=== PATIENT | male | born 1980 | race African-American/Black ===

== ENCOUNTER 2018-04-16 00:32 | Inpatient (IN) | payer OTHER ==
[2018-04-16] MEDS ORDERED: Sodium Chloride 0.9% 1,000 ML IV ONE ×2 (00:40→01:39)
--- NOTE | 2018-04-16 00:42 | EDM.PDOC ---
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, he has a known history of seizure disorder he was found unresponsive by his employees in a work locker room he is known to be noncompliant with his seizure medication was presumed that he had had a seizure however EMS was called as he had some confusion consistent with a postictal state However on arrival to the ER he was found to be hypoxic 82% on room air as well as hypotensive 80s over 40s, chest x-ray reveals a significant pneumonia and sepsis is likely Patient does not subjectively feel as if he has had fever or nausea although he did vomit once here in the emergency room no chest pain shortness of breath headache dizziness or palpitation no bowel or urine symptoms Patient initially wanted to leave AGAINST MEDICAL ADVICE however I did discuss with him the risks and benefits and he agrees to stay complete workup ] Review of systems: As per history of present illness and below otherwise all systems reviewed and negative. Past medical history: As per history of present illness and as reviewed below otherwise noncontributory. Surgical history: As per history of present illness and as reviewed below otherwise noncontributory. Social history: No reported history of drug or alcohol abuse. Family history: As per history of present illness and as reviewed below otherwise noncontributory. Physical exam: HEENT: Atraumatic, normocephalic, pupils reactive, negative for conjunctival pallor or scleral icterus, mucous membranes moist, throat clear, neck supple, nontender, trachea midline. Lungs: Clear to auscultation, breath sounds equal bilaterally, chest nontender. Heart: S1S2, regular, negative for clicks, rubs, or JVD. Abdomen: Soft, nondistended, nontender. Negative for masses or hepatosplenomegaly. Negative for costovertebral tenderness. Pelvis: Stable nontender. Genitourinary: Deferred. Rectal: Deferred. Extremities: Atraumatic, negative for cords or calf pain. Neurovascular unremarkable. Neuro: Awake, alert, oriented. Cranial nerves II through XII unremarkable. Cerebellum unremarkable. Motor and sensory unremarkable throughout. Exam nonfocal. Diagnostics: CBC CMP UA troponin blood culture urine culture EKG Chest [address] Keppra level [] Therapeutics: [ 2 L normal saline bolus Zosyn 3.375 g IV Vancomycin 1 g IV DuoNeb Solu-Medrol 125 mg IV ] Impression: [ hypoxia Hypotension Pneumonia Rule out sepsis ] Definitive disposition and diagnosis as appropriate pending reevaluation and review of above. - Related Data Allergies Allergy/AdvReac Type Severity Reaction Status Date / Time No Known Allergies Allergy Verified 04/16/18 00:40 Home Meds: Home Meds . [No Known Home Meds] 04/16/18 [History] Past Medical History Neurological History: Reports: Seizure Social & Family History - Tobacco Use Smoking Status *Q: Never Smoker ED ROS GENERAL - Review of Systems Review Of Systems: See Below ED EXAM, GENERAL - Physical Exam Exam: See Below Course - Vital Signs Last Recorded V/S: Last Vital Signs Temp 97 F 04/16/18 01:36 Pulse 98 04/16/18 01:29 Resp 18 04/16/18 01:36 BP 135/82 04/16/18 01:36 Pulse Ox 99 04/16/18 01:36 - Orders/Labs/Meds Orders: Active Orders 24 hr Category Date Time Status EKG Documentation Completion [RC] STAT Care 04/16/18 00:40 Active Chest 1V Frontal [CR] Stat Exams 04/16/18 00:40 Taken Head wo Cont [CT] Stat Exams 04/16/18 01:55 Ordered CULTURE BLOOD [BC] Stat Lab 04/16/18 00:45 Received CULTURE BLOOD [BC] Stat Lab 04/16/18 00:45 Results DRUG SCREEN, URINE [URCHEM] Stat Lab 04/16/18 00:40 Ordered LEVETIRACETAM, S [REF] Stat Lab 04/16/18 00:44 Ordered UA W/MICROSCOPIC [URIN] Stat Lab 04/16/18 00:40 Ordered Piperacillin/Tazobactam [Piperacil-Tazobact] 3.375 gm Med 04/16/18 01:43 Active Sodium Chloride 0.9% [Normal Saline] 50 ml IV ONETIME Sodium Chloride 0.9% [Normal Saline] 1,000 ml Med 04/16/18 01:39 Active IV .Bolus Vancomycin [Vancocin] 1 gm Med 04/16/18 01:44 Active Sodium Chloride 0.9% [Normal Saline] 250 ml IV ONETIME Blood Culture x2 Reflex Set [OM.PC] Stat Oth 04/16/18 00:41 Ordered Medication Orders Sodium Chloride (Normal Saline) 1,000 mls @ 999 mls/hr IV .Bolus ONE Stop: 04/16/18 02:39 Last Admin: 04/16/18 01:40 Dose: 999 mls/hr Piperacillin Sod/Tazobactam (Sod 3.375 gm/ Sodium Chloride) 50 mls @ 100 mls/ hr IV ONETIME ONE Stop: 04/16/18 02:12 Last Admin: 04/16/18 01:48 Dose: 100 mls/hr Vancomycin HCl 1 gm/ Sodium (Chloride) 250 mls @ 250 mls/hr IV ONETIME ONE Stop: 04/16/18 02:43 Labs: Laboratory Tests 04/16/18 04/16/18 04/16/18 Range/Units 00:45 00:45 00:45 WBC 8.33 (4.0-11.0) K/uL RBC 4.68 (4.50-5.90) M/uL Hgb 13.6 (13.0-17.0) g/dL Hct 40.0 (38.0-50.0) % MCV 85.5 (80.0-98.0) fL MCH 29.1 (27.0-32.0) pg MCHC 34.0 (31.0-37.0) g/dL RDW Std Deviation 40.5 (28.0-62.0) fl RDW Coeff of Arnaldo 13 (11.0-15.0) % Plt Count 151 (150-400) K/uL MPV 12.60 H (7.40-12.00) fL Neut % (Auto) 61.9 (48.0-80.0) % Lymph % (Auto) 25.0 (16.0-40.0) % Wallace % (Auto) 6.2 (0.0-15.0) % Eos % (Auto) 6.4 (0.0-7.0) % Baso % (Auto) 0.5 (0.0-1.5) % Neut # (Auto) 5.2 (1.4-5.7) K/uL Lymph # (Auto) 2.1 (0.6-2.4) K/uL Wallace # (Auto) 0.5 (0.0-0.8) K/uL Eos # (Auto) 0.5 (0.0-0.7) K/uL Baso # (Auto) 0.0 (0.0-0.1) K/uL Lactate 5.8 H (0.20-2.00) mmol/L Sodium 140 (136-148) mmol/L Potassium 4.0 (3.5-5.1) mmol/L Chloride 105 (98-107) mmol/L Carbon Dioxide 23.3 (21.0-32.0) mmol/L BUN 16 (7.0-18.0) mg/dL Creatinine 1.6 H (0.8-1.3) mg/dL Est Cr Clr Drug Dosing 72.07 mL/min Estimated GFR (MDRD) 48.4 ml/min Glucose 132 H (74-106) mg/dL Calcium 8.7 (8.5-10.1) mg/dL Total Bilirubin 0.4 (0.2-1.0) mg/dL AST 15 (15-37) IU/L ALT 38 (14-63) IU/L Alkaline Phosphatase 64 (46-116) U/L Creatine Kinase (26-308) U/L Troponin I < 0.050 (0.000-0.056) ng/mL Total Protein 6.5 (6.4-8.2) g/dL Albumin 3.4 (3.4-5.0) g/dL Globulin 3.1 (2.0-3.5) g/dL Albumin/Globulin Ratio 1.1 L (1.3-2.8) TSH 3rd Generation 1.09 (0.36-3.74) uIU/mL Ethyl Alcohol <3 mg/dL 04/16/18 Range/Units 00:53 WBC (4.0-11.0) K/uL RBC (4.50-5.90) M/uL Hgb (13.0-17.0) g/dL Hct (38.0-50.0) % MCV (80.0-98.0) fL MCH (27.0-32.0) pg MCHC (31.0-37.0) g/dL RDW Std Deviation (28.0-62.0) fl RDW Coeff of Arnaldo (11.0-15.0) % Plt Count (150-400) K/uL MPV (7.40-12.00) fL Neut % (Auto) (48.0-80.0) % Lymph % (Auto) (16.0-40.0) % Wallace % (Auto) (0.0-15.0) % Eos % (Auto) (0.0-7.0) % Baso % (Auto) (0.0-1.5) % Neut # (Auto) (1.4-5.7) K/uL Lymph # (Auto) (0.6-2.4) K/uL Wallace # (Auto) (0.0-0.8) K/uL Eos # (Auto) (0.0-0.7) K/uL Baso # (Auto) (0.0-0.1) K/uL Lactate (0.20-2.00) mmol/L Sodium (136-148) mmol/L Potassium (3.5-5.1) mmol/L Chloride (98-107) mmol/L Carbon Dioxide (21.0-32.0) mmol/L BUN (7.0-18.0) mg/dL Creatinine (0.8-1.3) mg/dL Est Cr Clr Drug Dosing mL/min Estimated GFR (MDRD) ml/min Glucose (74-106) mg/dL Calcium (8.5-10.1) mg/dL Total Bilirubin (0.2-1.0) mg/dL AST (15-37) IU/L ALT (14-63) IU/L Alkaline Phosphatase (46-116) U/L Creatine Kinase 175 (26-308) U/L Troponin I (0.000-0.056) ng/mL Total Protein (6.4-8.2) g/dL Albumin (3.4-5.0) g/dL Globulin (2.0-3.5) g/dL Albumin/Globulin Ratio (1.3-2.8) TSH 3rd Generation (0.36-3.74) uIU/mL Ethyl Alcohol mg/dL Meds: Medications Generic Name Dose Route Start Last Admin Trade Name Freq PRN Reason Stop Dose Admin Sodium Chloride 1,000 mls @ 999 mls/hr 04/16/18 01:39 04/16/18 01:40 Normal Saline IV 04/16/18 02:39 999 mls/hr .Bolus ONE Administration Piperacillin Sod/Tazobactam 50 mls @ 100 mls/hr 04/16/18 01:43 04/16/18 01:48 Sod 3.375 gm/ Sodium Chloride IV 04/16/18 02:12 100 mls/hr ONETIME ONE Administration Vancomycin HCl 1 gm/ Sodium 250 mls @ 250 mls/hr 04/16/18 01:44 Chloride IV 04/16/18 02:43 ONETIME ONE Discontinued Medications Generic Name Dose Route Start Last Admin Trade Name Freq PRN Reason Stop Dose Admin Sodium Chloride 1,000 mls @ 999 mls/hr 04/16/18 00:40 04/16/18 00:45 Normal Saline IV 04/16/18 01:40 999 mls/hr STAT ONE Administration Methylprednisolone Sodium Succinate 125 mg 04/16/18 01:30 04/16/18 01:29 Solu-Medrol IVPUSH 04/16/18 01:31 125 mg ONETIME ONE Administration Methylprednisolone Sodium Succinate Confirm 04/16/18 01:25 04/16/18 01:41 Solu-Medrol Administered 04/16/18 01:26 Not Given Dose 125 mg .ROUTE .STK-MED ONE Ondansetron HCl 8 mg 04/16/18 01:32 04/16/18 01:36 Zofran IVPUSH 04/16/18 01:33 8 mg ONETIME ONE Administration Ondansetron HCl Confirm 04/16/18 01:34 04/16/18 01:41 Zofran Administered 04/16/18 01:35 Not Given Dose 8 mg .ROUTE .STK-MED ONE Departure - Departure Time of Disposition: 02:00 Disposition: Admitted As Inpatient 64 Condition: Poor Clinical Impression: Pneumonia, Hypoxia, Hypotension - Discharge Information Forms: ED Department Discharge - My Orders Last 24 Hours: My Active Orders 04/16/18 00:40 EKG Documentation Completion [RC] STAT Chest 1V Frontal [CR] Stat DRUG SCREEN, URINE [URCHEM] Stat UA W/MICROSCOPIC [URIN] Stat 04/16/18 00:41 Blood Culture x2 Reflex Set [OM.PC] Stat 04/16/18 00:44 LEVETIRACETAM, S [REF] Stat 04/16/18 00:45 CULTURE BLOOD [BC] Stat CULTURE BLOOD [BC] Stat 04/16/18 01:39 Sodium Chloride 0.9% [Normal Saline] 1,000 ml IV .Bolus 04/16/18 01:43 Piperacillin/Tazobactam [Piperacil-Tazobact] 3.375 gm Sodium Chloride 0.9% [ Normal Saline] 50 ml IV ONETIME 04/16/18 01:44 Vancomycin [Vancocin] 1 gm Sodium Chloride 0.9% [Normal Saline] 250 ml IV ONETIME 04/16/18 01:55 Head wo Cont [CT] Stat - Assessment/Plan Last 24 Hours: My Active Orders 04/16/18 00:40 EKG Documentation Completion [RC] STAT Chest 1V Frontal [CR] Stat DRUG SCREEN, URINE [URCHEM] Stat UA W/MICROSCOPIC [URIN] Stat 04/16/18 00:41 Blood Culture x2 Reflex Set [OM.PC] Stat 04/16/18 00:44 LEVETIRACETAM, S [REF] Stat 04/16/18 00:45 CULTURE BLOOD [BC] Stat CULTURE BLOOD [BC] Stat 04/16/18 01:39 Sodium Chloride 0.9% [Normal Saline] 1,000 ml IV .Bolus 04/16/18 01:43 Piperacillin/Tazobactam [Piperacil-Tazobact] 3.375 gm Sodium Chloride 0.9% [ Normal Saline] 50 ml IV ONETIME 04/16/18 01:44 Vancomycin [Vancocin] 1 gm Sodium Chloride 0.9% [Normal Saline] 250 ml IV ONETIME 04/16/18 01:55 Head wo Cont [CT] Stat
[2018-04-16] MEDS ORDERED: methylPREDNISolone Sodium Succinate 125 MG/2 ML SDV ONE (01:25)
[2018-04-16] MEDS ORDERED: methylPREDNISolone Sodium Succinate 125 MG/2 ML SDV IVPUSH ONE (01:30)
[2018-04-16] MEDS ORDERED: Ondansetron 4 MG/2 ML SDV IVPUSH ONE (01:32)
[2018-04-16] MEDS ORDERED: Ondansetron 4 MG/2 ML SDV ONE (01:34)
[2018-04-16] MEDS ORDERED: Piperacillin/Tazobactam 3.375 GM in Sodium Chloride 0.9% 50 ML IV ONE (01:43)
[2018-04-16 01:47] LABS: CHLORIDE,CL 105 mmol/L (98-107); SODIUM,NA 140 mmol/L (136-148)
[2018-04-16] MEDS: Sodium Chloride 0.45% 1,000 ML IV SCH ×2 (06:16→16:01)
[2018-04-16 07:37] LABS: CHLORIDE,CL 106 mmol/L (98-107); SODIUM,NA 139 mmol/L (136-148)
[2018-04-16] MEDS: Levofloxacin/Dextrose 5%-Water 750 MG in Premix Bag 1 BAG IV SCH (08:09)
[2018-04-16] MEDS: Piperacillin/Tazobactam 4.5 GM in Sodium Chloride 0.9% 100 ML IV SCH ×3 (10:01→22:00)
--- NOTE | 2018-04-16 10:12 | CR ---
EXAM DATE: 04/16/18 PATIENT'S AGE: 37 Patient: DINO WANG Facility: [place], [place] Site . Site : 1980 Study: XRay Chest [id number]/16/2018 1:34:25 AM Ordering Physician: Doctor Mary Final Report: INDICATION: Patient came in by ambulance. Patient was found unconscious TECHNIQUE: Chest radiograph 1 view COMPARISON: None FINDINGS: Moderate degradation of image quality noted due to body habitus. Mediastinum: The mediastinum is normal in appearance. The heart silhouette is normal in size and morphology. Lung: Mild airspace infiltrates are present in the right perihilar region and left lung base. No sign of pleural effusion seen. No pneumothorax is identified. Musculoskeletal: Unremarkable for age. IMPRESSION: 1. Mild airspace infiltrates are present in the right perihilar region and left lung base. Findings may be due to asymmetric edema, aspiration, or pneumonia. Dictated by Viraj Haas MD @ 04/16/2018 1:37:42 AM Dictated by: Viraj Haas MD @ 04/16/2018 01:37:47 (Electronic Signature) Report Signed by Proxy. [facility]PITALFacundo
--- NOTE | 2018-04-16 10:13 | CT ---
EXAM DATE: 04/16/18 PATIENT'S AGE: 37 Patient: DINO WANG Facility: [place], [place] Site . Site : 1980 Study: CT Head [id number]/16/2018 2:19:00 AM Ordering Physician: Zoë Bonner Final Report: INDICATION: Found unconscious TECHNIQUE: CT head without contrast. COMPARISON: None available FINDINGS: The ventricles and sulci are within normal limits for the patient`s age. There is no mass effect or midline shift. There is no loss of henderson-white differentiation. There is no evidence of an acute intracranial hemorrhage. No acute calvarial fracture is seen. There is mild scalp swelling at the vertex. Paranasal sinus mucosal thickening is noted. The mastoid air cells are clear. The visualized orbits are within normal limits. IMPRESSION: No evidence of an acute intracranial hemorrhage, mass effect or loss of henderson- white differentiation. Scalp swelling at the vertex. Paranasal sinus disease. Dictated by Ernie Hansen MD @ 04/16/2018 2:41:45 AM Please note that all CT scans at this facility use dose modulation, iterative reconstruction, and/or weight-based dosing when appropriate to reduce radiation dose to as low as reasonably achievable. Dictated by: Ernie Hansen MD @ 04/16/2018 02:41:49 (Electronic Signature) Report Signed by Proxy. [facility]
--- NOTE | 2018-04-16 17:55 | PCM.HP ---
H&P History of Present Illness - General Date of Service: 04/16/18 Admit Problem/Dx: Admission Diagnosis/Problem Admission Diagnosis/Problem Pneumonia Patient who came here for work the day before , traveling all day from [place], presented to Er because he was found unresponsive by his coworkers and they called the EMS. Patient has history of [place] Seizure , but did not have seizures for the past 4 y and he stopped his medications by himself 4 y ago He was also found to have O2 sat 81 % on room air and HR 133 , Bp:80/40 Patient states that during the day he traveled he was feeling lightheaded on and off and had some dry cough , no fever. Denies CP , sob Source of Information: Patient History Limitations: Reports: No Limitations - History of Present Illness Duration of Symptoms: Reports: Minutes: Location: Reports: Head - Related Data Allergies/Adverse Reactions: Allergies Allergy/AdvReac Type Severity Reaction Status Date / Time No Known Allergies Allergy Verified 04/16/18 00:40 Home Medications: Home Meds Multivitamin [Multivitamins] 1 each PO DAILY 04/16/18 [History] Past Medical History HEENT History: Reports: Impaired Vision Musculoskeletal History: Reports: Fracture Neurological History: Reports: Migraines, Seizure - Past Surgical History GI Surgical History: Reports: Appendectomy Neurological Surgical History: Reports: None Musculoskeletal Surgical History: Reports: Other (See Below) Other Musculoskeletal Surgeries/Procedures:: left shoulder fracture and surgery Social & Family History - Family History Family Medical History: Noncontributory - Tobacco Use Smoking Status *Q: Never Smoker - Caffeine Use Caffeine Use: Reports: Soda - Recreational Drug Use Recreational Drug Use: No H&P Review of Systems - Review of Systems: Review Of Systems: See Below General: Reports: No Symptoms HEENT: Reports: No Symptoms Pulmonary: Reports: Cough. Denies: Sputum Cardiovascular: Reports: Lightheadedness Gastrointestinal: Reports: No Symptoms Musculoskeletal: Reports: No Symptoms Skin: Reports: No Symptoms Psychiatric: Reports: No Symptoms Neurological: Reports: Other (hx of seizure) Hematologic/Lymphatic: Reports: No Symptoms Immunologic: Reports: No Symptoms Exam - Exam Exam: See Below - Vital Signs Vital Signs: Last Vital Signs Temp 98.2 F 04/16/18 17:07 Pulse 94 04/16/18 17:07 Resp 18 04/16/18 17:07 BP 150/74 H 04/16/18 17:07 Pulse Ox 94 L 04/16/18 17:07 Weight: 295 lb 4.8 oz - Exam General: Alert, Oriented HEENT: Conjunctiva Clear, EOMI Neck: Supple, Trachea Midline Lungs: Decreased Breath Sounds, Crackles. No: Wheezing Cardiovascular: Regular Rate, Regular Rhythm, Normal S1, Normal S2 GI/Abdominal Exam: Normal Bowel Sounds, Soft, Non-Tender, No Organomegaly, No Distention Back Exam: Normal Inspection, Full Range of Motion Extremities: Normal Inspection, Normal Range of Motion Skin: Warm, Dry, Intact Neurological: Cranial Nerves Intact Neuro Extensive - Mental Status: Alert, Oriented x3, Normal Mood/Affect, Normal Cognition Psychiatric: Alert, Normal Affect, Normal Mood - Patient Data Lab Results Last 24 hrs: Laboratory Results - last 24 hr 04/16/18 04/16/18 04/16/18 Range/Units 00:45 00:45 00:45 WBC 8.33 (4.0-11.0) K/uL RBC 4.68 (4.50-5.90) M/uL Hgb 13.6 (13.0-17.0) g/dL Hct 40.0 (38.0-50.0) % MCV 85.5 (80.0-98.0) fL MCH 29.1 (27.0-32.0) pg MCHC 34.0 (31.0-37.0) g/dL RDW Std Deviation 40.5 (28.0-62.0) fl RDW Coeff of Arnaldo 13 (11.0-15.0) % Plt Count 151 (150-400) K/uL MPV 12.60 H (7.40-12.00) fL Neut % (Auto) 61.9 (48.0-80.0) % Lymph % (Auto) 25.0 (16.0-40.0) % [place] % (Auto) 6.2 (0.0-15.0) % Eos % (Auto) 6.4 (0.0-7.0) % Baso % (Auto) 0.5 (0.0-1.5) % Neut # (Auto) 5.2 (1.4-5.7) K/uL Lymph # (Auto) 2.1 (0.6-2.4) K/uL [place] # (Auto) 0.5 (0.0-0.8) K/uL Eos # (Auto) 0.5 (0.0-0.7) K/uL Baso # (Auto) 0.0 (0.0-0.1) K/uL Nucleated RBC % /100WBC Nucleated RBCs # K/uL Lactate 5.8 H (0.20-2.00) mmol/L Sodium 140 (136-148) mmol/L Potassium 4.0 (3.5-5.1) mmol/L Chloride 105 (98-107) mmol/L Carbon Dioxide 23.3 (21.0-32.0) mmol/L BUN 16 (7.0-18.0) mg/dL Creatinine 1.6 H (0.8-1.3) mg/dL Est Cr Clr Drug Dosing 72.07 mL/min Estimated GFR (MDRD) 48.4 ml/min Glucose 132 H (74-106) mg/dL Calcium 8.7 (8.5-10.1) mg/dL Total Bilirubin 0.4 (0.2-1.0) mg/dL AST 15 (15-37) IU/L ALT 38 (14-63) IU/L Alkaline Phosphatase 64 (46-116) U/L Creatine Kinase (26-308) U/L Troponin I < 0.050 (0.000-0.056) ng/mL Total Protein 6.5 (6.4-8.2) g/dL Albumin 3.4 (3.4-5.0) g/dL Globulin 3.1 (2.0-3.5) g/dL Albumin/Globulin Ratio 1.1 L (1.3-2.8) TSH 3rd Generation 1.09 (0.36-3.74) uIU/mL Urine Color Urine Appearance Urine pH (5.0-8.0) Ur Specific [place] (1.001-1.035) Urine Protein (NEGATIVE) mg/dL Urine Glucose (UA) (NEGATIVE) mg/dL Urine Ketones (NEGATIVE) mg/dL Urine Occult Blood (NEGATIVE) Urine Nitrite (NEGATIVE) Urine Bilirubin (NEGATIVE) Urine Urobilinogen (<2.0) EU/dL Ur Leukocyte Esterase (NEGATIVE) Urine RBC (0-2/HPF) Urine WBC (0-5/HPF) Ur Epithelial Cells (NONE-FEW) Urine Bacteria (NEGATIVE) Urine Mucus (NONE-MOD) Urine Opiates Screen (NEGATIVE) Ur Oxycodone Screen (NEGATIVE) Urine Methadone Screen (NEGATIVE) Ur Barbiturates Screen (NEGATIVE) Ur Phencyclidine Scrn (NEGATIVE) Ur Amphetamine Screen (NEGATIVE) U Methamphetamines Scrn (NEGATIVE) U Benzodiazepines Scrn (NEGATIVE) U Cocaine Metab Screen (NEGATIVE) U Marijuana (THC) Screen (NEGATIVE) Ethyl Alcohol <3 mg/dL 04/16/18 04/16/18 04/16/18 Range/Units 00:53 02:20 02:20 WBC (4.0-11.0) K/uL RBC (4.50-5.90) M/uL Hgb (13.0-17.0) g/dL Hct (38.0-50.0) % MCV (80.0-98.0) fL MCH (27.0-32.0) pg MCHC (31.0-37.0) g/dL RDW Std Deviation (28.0-62.0) fl RDW Coeff of Arnaldo (11.0-15.0) % Plt Count (150-400) K/uL MPV (7.40-12.00) fL Neut % (Auto) (48.0-80.0) % Lymph % (Auto) (16.0-40.0) % [place] % (Auto) (0.0-15.0) % Eos % (Auto) (0.0-7.0) % Baso % (Auto) (0.0-1.5) % Neut # (Auto) (1.4-5.7) K/uL Lymph # (Auto) (0.6-2.4) K/uL [place] # (Auto) (0.0-0.8) K/uL Eos # (Auto) (0.0-0.7) K/uL Baso # (Auto) (0.0-0.1) K/uL Nucleated RBC % /100WBC Nucleated RBCs # K/uL Lactate (0.20-2.00) mmol/L Sodium (136-148) mmol/L Potassium (3.5-5.1) mmol/L Chloride (98-107) mmol/L Carbon Dioxide (21.0-32.0) mmol/L BUN (7.0-18.0) mg/dL Creatinine (0.8-1.3) mg/dL Est Cr Clr Drug Dosing mL/min Estimated GFR (MDRD) ml/min Glucose (74-106) mg/dL Calcium (8.5-10.1) mg/dL Total Bilirubin (0.2-1.0) mg/dL AST (15-37) IU/L ALT (14-63) IU/L Alkaline Phosphatase (46-116) U/L Creatine Kinase 175 (26-308) U/L Troponin I (0.000-0.056) ng/mL Total Protein (6.4-8.2) g/dL Albumin (3.4-5.0) g/dL Globulin (2.0-3.5) g/dL Albumin/Globulin Ratio (1.3-2.8) TSH 3rd Generation (0.36-3.74) uIU/mL Urine Color YELLOW Urine Appearance CLEAR Urine pH 5.5 (5.0-8.0) Ur Specific [place] 1.025 (1.001-1.035) Urine Protein 30 (NEGATIVE) mg/dL Urine Glucose (UA) NEGATIVE (NEGATIVE) mg/dL Urine Ketones NEGATIVE (NEGATIVE) mg/dL Urine Occult Blood SMALL H (NEGATIVE) Urine Nitrite NEGATIVE (NEGATIVE) Urine Bilirubin NEGATIVE (NEGATIVE) Urine Urobilinogen 0.2 (<2.0) EU/dL Ur Leukocyte Esterase NEGATIVE (NEGATIVE) Urine RBC 0-3 (0-2/HPF) Urine WBC 0-1 (0-5/HPF) Ur Epithelial Cells RARE (NONE-FEW) Urine Bacteria FEW (NEGATIVE) Urine Mucus LIGHT (NONE-MOD) Urine Opiates Screen NEGATIVE (NEGATIVE) Ur Oxycodone Screen NEGATIVE (NEGATIVE) Urine Methadone Screen NEGATIVE (NEGATIVE) Ur Barbiturates Screen NEGATIVE (NEGATIVE) Ur Phencyclidine Scrn NEGATIVE (NEGATIVE) Ur Amphetamine Screen NEGATIVE (NEGATIVE) U Methamphetamines Scrn NEGATIVE (NEGATIVE) U Benzodiazepines Scrn NEGATIVE (NEGATIVE) U Cocaine Metab Screen NEGATIVE (NEGATIVE) U Marijuana (THC) Screen NEGATIVE (NEGATIVE) Ethyl Alcohol mg/dL 04/16/18 04/16/18 04/16/18 Range/Units 06:44 06:44 06:44 WBC 11.03 H (4.0-11.0) K/uL RBC 4.55 (4.50-5.90) M/uL Hgb 13.4 (13.0-17.0) g/dL Hct 38.6 (38.0-50.0) % MCV 84.8 (80.0-98.0) fL MCH 29.5 (27.0-32.0) pg MCHC 34.7 (31.0-37.0) g/dL RDW Std Deviation 42.9 (28.0-62.0) fl RDW Coeff of Arnaldo 14 (11.0-15.0) % Plt Count 128 L (150-400) K/uL MPV 12.80 H (7.40-12.00) fL Neut % (Auto) 92.4 H (48.0-80.0) % Lymph % (Auto) 6.0 L (16.0-40.0) % [place] % (Auto) 1.1 (0.0-15.0) % Eos % (Auto) 0.4 (0.0-7.0) % Baso % (Auto) 0.1 (0.0-1.5) % Neut # (Auto) 10.2 H (1.4-5.7) K/uL Lymph # (Auto) 0.7 (0.6-2.4) K/uL [place] # (Auto) 0.1 (0.0-0.8) K/uL Eos # (Auto) 0.0 (0.0-0.7) K/uL Baso # (Auto) 0.0 (0.0-0.1) K/uL Nucleated RBC % 0.0 /100WBC Nucleated RBCs # 0 K/uL Lactate 1.8 (0.20-2.00) mmol/L Sodium 139 (136-148) mmol/L Potassium 4.8 (3.5-5.1) mmol/L Chloride 106 (98-107) mmol/L Carbon Dioxide 27.3 (21.0-32.0) mmol/L BUN 14 (7.0-18.0) mg/dL Creatinine 1.4 H (0.8-1.3) mg/dL Est Cr Clr Drug Dosing 82.36 mL/min Estimated GFR (MDRD) > 60.0 ml/min Glucose 143 H (74-106) mg/dL Calcium 8.2 L (8.5-10.1) mg/dL Total Bilirubin (0.2-1.0) mg/dL AST (15-37) IU/L ALT (14-63) IU/L Alkaline Phosphatase (46-116) U/L Creatine Kinase (26-308) U/L Troponin I (0.000-0.056) ng/mL Total Protein (6.4-8.2) g/dL Albumin (3.4-5.0) g/dL Globulin (2.0-3.5) g/dL Albumin/Globulin Ratio (1.3-2.8) TSH 3rd Generation (0.36-3.74) uIU/mL Urine Color Urine Appearance Urine pH (5.0-8.0) Ur Specific [place] (1.001-1.035) Urine Protein (NEGATIVE) mg/dL Urine Glucose (UA) (NEGATIVE) mg/dL Urine Ketones (NEGATIVE) mg/dL Urine Occult Blood (NEGATIVE) Urine Nitrite (NEGATIVE) Urine Bilirubin (NEGATIVE) Urine Urobilinogen (<2.0) EU/dL Ur Leukocyte Esterase (NEGATIVE) Urine RBC (0-2/HPF) Urine WBC (0-5/HPF) Ur Epithelial Cells (NONE-FEW) Urine Bacteria (NEGATIVE) Urine Mucus (NONE-MOD) Urine Opiates Screen (NEGATIVE) Ur Oxycodone Screen (NEGATIVE) Urine Methadone Screen (NEGATIVE) Ur Barbiturates Screen (NEGATIVE) Ur Phencyclidine Scrn (NEGATIVE) Ur Amphetamine Screen (NEGATIVE) U Methamphetamines Scrn (NEGATIVE) U Benzodiazepines Scrn (NEGATIVE) U Cocaine Metab Screen (NEGATIVE) U Marijuana (THC) Screen (NEGATIVE) Ethyl Alcohol mg/dL Result Diagrams: 04/16/18 06:44 04/16/18 06:44 Regis Results Last 24 hrs: Microbiology 04/16/18 00:45 Anaerobic Blood Culture - Final Blood - Venous - Problem List (1) Hypotension SNOMED Code(s): 08516130 ICD Code: I95.9 - HYPOTENSION, UNSPECIFIED Status: Acute Current Visit: Yes (2) Hypotension SNOMED Code(s): 78637478 ICD Code: I95.9 - HYPOTENSION, UNSPECIFIED Status: Acute Current Visit: Yes (3) Hypoxia SNOMED Code(s): 343737924 ICD Code: R09.02 - HYPOXEMIA Status: Acute Current Visit: Yes (4) Pneumonia SNOMED Code(s): 282184058 ICD Code: J18.9 - PNEUMONIA, UNSPECIFIED ORGANISM Status: Acute Current Visit: Yes (5) History of seizure SNOMED Code(s): 886933389 ICD Code: Z87.898 - PERSONAL HISTORY OF OTHER SPECIFIED CONDITIONS Status: Acute Current Visit: Yes (6) Loss of consciousness SNOMED Code(s): 346971534, 907334339 ICD Code: R40.20 - UNSPECIFIED COMA Status: Acute Current Visit: Yes Problem List Initiated/Reviewed/Updated: Yes Orders Last 24hrs: Active Orders 24 hr Category Date Time Status Admission Status [Patient Status] [ADT] Stat ADT 04/16/18 02:00 Active Transfer Patient (Change bed) [ADT] Routine ADT 04/16/18 09:10 Ordered Oxygen Therapy [RC] ASDIRECTED Care 04/16/18 08:25 Active Telemetry Monitoring [Cardiac Monitoring] [RC] Q8H Care 04/16/18 09:10 Active Up ad Jaycee [RC] ASDIRECTED Care 04/16/18 08:25 Active Vital Signs [RC] Q4H Care 04/16/18 08:24 Active Regular Diet [DIET] Diet 04/16/18 Breakfast Active CULTURE BLOOD [BC] Stat Lab 04/16/18 00:45 Received CULTURE BLOOD [BC] Stat Lab 04/16/18 00:45 Results DRUG SCREEN, URINE [URCHEM] Stat Lab 04/16/18 02:20 Ordered LEVETIRACETAM, S [REF] Stat Lab 04/16/18 00:45 Received UA W/MICROSCOPIC [URIN] Stat Lab 04/16/18 02:20 Ordered Levofloxacin/Dextrose 5%-Water [Levaquin in D5W 750 MG/ Med 04/16/18 08:00 Active 150 ML] 750 mg Premix Bag 1 bag IV Q24H Multivitamin [Multivitamins] Med 04/17/18 09:00 Ordered 1 each PO DAILY Piperacillin/Tazobactam [Piperacil-Tazobact] 4.5 gm Med 04/16/18 10:00 Active Sodium Chloride 0.9% [Normal Saline] 100 ml IV Q6H amLODIPine [Norvasc] Med 04/16/18 18:00 Ordered 5 mg PO DAILY Blood Culture x2 Reflex Set [OM.PC] Stat Oth 04/16/18 00:41 Ordered Medication Orders Amlodipine Besylate (Norvasc) 5 mg PO DAILY [facility] Levofloxacin/Dextrose 750 mg/ (Premix) 150 mls @ 100 mls/hr IV Q24H [facility] Last Admin: 04/16/18 08:09 Dose: 100 mls/hr Piperacillin Sod/Tazobactam (Sod 4.5 gm/ Sodium Chloride) 100 mls @ 100 mls/hr IV Q6H [facility] Last Admin: 04/16/18 15:59 Dose: 100 mls/hr Infusion: 04/16/18 11:01 Dose: 100 mls/hr Admin: 04/16/18 10:01 Dose: 100 mls/hr Non-Formulary Medication (Multivitamin [Multivitamins]) 1 each PO DAILY [facility] Patient admitted with pneumonia of rt lung unsure if aspiration or CAP - he was started on zosyn 4.5 mg iv q 6 h , and Levaquin 750 mg iv q 24h, f/up bc refused CT chest ordered by E icu in am Had respiratory failure hypoxic and was on 6 l of oxygen at admission in the morning his O2 was titrated down to 4 l , cardiac echo, lipid profile in am For LOC - likely secondary to hypoxia - will monitor patient in Telemetry , will order D- dimer , if elevated will try to rediscuss with patient to have CTPA dvt prof - lovenox sq
[2018-04-16] MEDS ORDERED: amLODIPine 5 MG Tab PO SCH (18:00)
[2018-04-16] MEDS: amLODIPine 5 MG Tab PO SCH (18:26)
[2018-04-16] MEDS ORDERED: Iopamidol 755 MG/ML 500 ML Multipack Bottle IVPUSH STA (22:01)
[2018-04-17] MEDS ORDERED: LORazepam 2 MG/ML SDV ONE ×2 (01:11→01:18)
[2018-04-17] MEDS ORDERED: LORazepam 2 MG/ML SDV IVPUSH PRN ×3 (01:24→19:20)
[2018-04-17] MEDS ORDERED: Magnesium Sulfate/Water 2 GM in Premix Bag 1 BAG IV ONE (02:13)
[2018-04-17] MEDS ORDERED: Lactated Ringers 1,000 ML IV SCH ×2 (02:15)
--- NOTE | 2018-04-17 02:29 | PCM.SN ---
- Free Text/Narrative Note: Rapid response was called because patient had a seizure , [place]. He bite his tongue and was bleeding. Patient was given ativan twice 2 mg and his seizure subsided and his airways were aspirated S/p seizure patient was given keppra 1000 mg iv one dose for loading , will need to follow with keppra 750 mg po BId. He was also restarted on Zosyn to be covered for aspiration pneumonia
[2018-04-17] MEDS ORDERED: Piperacillin/Tazobactam 4.5 GM in Sodium Chloride 0.9% 100 ML IV ONE (02:30)
[2018-04-17] MEDS: Levofloxacin/Dextrose 5%-Water 750 MG in Premix Bag 1 BAG IV SCH (07:49)
[2018-04-17] MEDS: Enoxaparin 40 MG/0.4 ML Syringe SUBCUT SCH (08:09)
[2018-04-17] MEDS: Multivitamins with Iron/Calcium/Folic Acid/Minerals Tab PO SCH (08:10)
[2018-04-17] MEDS: Piperacillin/Tazobactam 4.5 GM in Sodium Chloride 0.9% 100 ML IV SCH ×3 (09:24→20:40)
[2018-04-17 09:28] LABS: CHLORIDE,CL 105 mmol/L (98-107); SODIUM,NA 139 mmol/L (136-148)
[2018-04-17] MEDS: levETIRAcetam 500 MG Tab PO SCH ×3 (09:59→21:57)
--- NOTE | 2018-04-17 14:29 | PCM.PN ---
- General Info Date of Service: 04/17/18 Admission Dx/Problem (Free Text): Admission Diagnosis/Problem Admission Diagnosis/Problem Pneumonia Subjective Update: Patient had seizure last night and in the morning he did not remembered anything what happened during the night. Initially refused the medication for seizure but later he complied and took his medications. [place] very tired today and and sleepy. CTPA was negative for blood cloths , showed ground glass opacities in both lungs finding characteristic to atypical pneumonia. Zosyn was d/c after the CT report but, soon after patient had a [place] seizure and the medication was restarted due to concern for aspiration. - Review of Systems General: Reports: Fatigue HEENT: Reports: No Symptoms Pulmonary: Reports: No Symptoms Cardiovascular: Reports: No Symptoms Gastrointestinal: Reports: No Symptoms Genitourinary: Reports: No Symptoms Musculoskeletal: Reports: No Symptoms Skin: Reports: No Symptoms Neurological: Reports: Seizure, Other ( amnesia) - Patient Data Vitals - Most Recent: Last Vital Signs Temp 97.9 F 04/17/18 11:47 Pulse 93 04/17/18 11:47 Resp 18 04/17/18 11:47 BP 145/81 H 04/17/18 11:47 Pulse Ox 96 04/17/18 11:47 Weight - Most Recent: 296 lb 9.6 oz I&O - Last 24 Hours: Intake & Output 04/16/18 04/17/18 04/17/18 22:59 06:59 14:59 Intake Total 2039 1940 1023 Output Total 750 1800 Balance 8822 955 1414 Lab Results Last 24 Hours: Laboratory Results - last 24 hr 04/16/18 04/17/18 04/17/18 Range/Units 19:55 04:50 04:50 WBC 12.96 H (4.0-11.0) K/uL RBC 4.28 L (4.50-5.90) M/uL Hgb 12.4 L (13.0-17.0) g/dL Hct 35.8 L (38.0-50.0) % MCV 83.6 (80.0-98.0) fL MCH 29.0 (27.0-32.0) pg MCHC 34.6 (31.0-37.0) g/dL RDW Std Deviation 42.1 (28.0-62.0) fl RDW Coeff of Arnaldo 14 (11.0-15.0) % Plt Count 180 (150-400) K/uL MPV 12.50 H (7.40-12.00) fL Nucleated RBC % 0.0 /100WBC Nucleated RBCs # 0 K/uL D-Dimer, Quantitative 1.28 H (0.0-0.52) mg/LFEU Sodium (136-148) mmol/L Potassium (3.5-5.1) mmol/L Chloride (98-107) mmol/L Carbon Dioxide (21.0-32.0) mmol/L BUN (7.0-18.0) mg/dL Creatinine (0.8-1.3) mg/dL Est Cr Clr Drug Dosing mL/min Estimated GFR (MDRD) ml/min Glucose (74-106) mg/dL Calcium (8.5-10.1) mg/dL Phosphorus 3.1 (2.6-4.7) mg/dL Magnesium 2.5 H (1.8-2.4) mg/dL Creatine Kinase 161 (26-308) U/L Troponin I (0.000-0.056) ng/mL Triglycerides 129 (0-200) mg/dL Cholesterol 179 (50-200) mg/dL LDL Cholesterol, Calc 114 (60-180) mg/dL VLDL Cholesterol 25 (5-55) mg/dL HDL Cholesterol 39 L (40-60) mg/dL Cholesterol/HDL Ratio 4.6 (3.3-6.0) 18 04/17/18 Range/Units 04:50 04:50 WBC (4.0-11.0) K/uL RBC (4.50-5.90) M/uL Hgb (13.0-17.0) g/dL Hct (38.0-50.0) % MCV (80.0-98.0) fL MCH (27.0-32.0) pg MCHC (31.0-37.0) g/dL RDW Std Deviation (28.0-62.0) fl RDW Coeff of Arnaldo (11.0-15.0) % Plt Count (150-400) K/uL MPV (7.40-12.00) fL Nucleated RBC % /100WBC Nucleated RBCs # K/uL D-Dimer, Quantitative (0.0-0.52) mg/LFEU Sodium 139 (136-148) mmol/L Potassium 3.6 (3.5-5.1) mmol/L Chloride 105 (98-107) mmol/L Carbon Dioxide 26.4 (21.0-32.0) mmol/L BUN 16 (7.0-18.0) mg/dL Creatinine 1.3 (0.8-1.3) mg/dL Est Cr Clr Drug Dosing 88.70 mL/min Estimated GFR (MDRD) > 60.0 ml/min Glucose 125 H (74-106) mg/dL Calcium 8.4 L (8.5-10.1) mg/dL Phosphorus (2.6-4.7) mg/dL Magnesium (1.8-2.4) mg/dL Creatine Kinase (26-308) U/L Troponin I < 0.050 (0.000-0.056) ng/mL Triglycerides (0-200) mg/dL Cholesterol (50-200) mg/dL LDL Cholesterol, Calc (60-180) mg/dL VLDL Cholesterol (5-55) mg/dL HDL Cholesterol (40-60) mg/dL Cholesterol/HDL Ratio (3.3-6.0) Regis Results Last 24 Hours: Microbiology 04/16/18 00:45 Aerobic Blood Culture - Preliminary Blood - Venous NO GROWTH AFTER 1 DAY Anaerobic Blood Culture - Final 04/16/18 00:45 Aerobic Blood Culture - Preliminary Blood - Venous - Iv Start NO GROWTH AFTER 1 DAY Anaerobic Blood Culture - Preliminary NO GROWTH AFTER 1 DAY Med Orders - Current: Current Medications Amlodipine Besylate (Norvasc) 5 mg PO 1800 [facility] Last Admin: 04/16/18 18:26 Dose: Not Given Enoxaparin Sodium (Lovenox) 40 mg SUBCUT Q24H [facility] Last Admin: 04/17/18 08:09 Dose: Not Given Levofloxacin/Dextrose 750 mg/ (Premix) 150 mls @ 100 mls/hr IV Q24H [facility] Last Admin: 04/17/18 07:49 Dose: 100 mls/hr Piperacillin Sod/Tazobactam (Sod 4.5 gm/ Sodium Chloride) 100 mls @ 100 mls/hr IV Q6H [facility] Last Admin: 04/17/18 09:24 Dose: 100 mls/hr Lactated Ringer's (Ringers, Lactated) 1,000 mls @ 150 mls/hr IV ASDIRECTED [facility] Last Admin: 04/17/18 03:23 Dose: 150 mls/hr Levetiracetam (Keppra) 750 mg PO BID [facility] Last Admin: 04/17/18 12:58 Dose: 750 mg Lorazepam (Ativan) 0 mg IVPUSH Q1H PRN PRN Reason: Seizures Multivitamins/Minerals (Thera M Plus) 1 tab PO DAILY [facility] Last Admin: 04/17/18 08:10 Dose: Not Given Discontinued Medications Amlodipine Besylate (Norvasc) 5 mg PO DAILY [facility] Sodium Chloride (Normal Saline) 1,000 mls @ 999 mls/hr IV STAT ONE Stop: 04/16/18 01:40 Last Admin: 04/16/18 00:45 Dose: 999 mls/hr Sodium Chloride (Normal Saline) 1,000 mls @ 999 mls/hr IV .Bolus ONE Stop: 04/16/18 02:39 Last Admin: 04/16/18 01:40 Dose: 999 mls/hr Piperacillin Sod/Tazobactam (Sod 3.375 gm/ Sodium Chloride) 50 mls @ 100 mls/ hr IV ONETIME ONE Stop: 04/16/18 02:12 Last Admin: 04/16/18 01:48 Dose: 100 mls/hr Vancomycin HCl 1 gm/ Sodium (Chloride) 250 mls @ 250 mls/hr IV ONETIME ONE Stop: 04/16/18 02:43 Last Admin: 04/16/18 02:33 Dose: 250 mls/hr Sodium Chloride (Sodium Chloride 0.45%) 1,000 mls @ 125 mls/hr IV ASDIRECTED [facility] Last Admin: 04/16/18 16:01 Dose: 125 mls/hr Piperacillin Sod/Tazobactam (Sod 4.5 gm/ Sodium Chloride) 100 mls @ 100 mls/hr IV Q6H [facility] Last Admin: 04/16/18 22:00 Dose: 100 mls/hr Levetiracetam 1,000 mg/ (Dextrose/Water) 110 mls @ 440 mls/hr IV NOW ONE Stop: 04/17/18 01:34 Last Admin: 04/17/18 01:34 Dose: 440 mls/hr Lactated Ringer's (Ringers, Lactated) 1,000 mls @ 999 mls/hr IV ASDIRECTED [place] Stop: 04/17/18 03:16 Last Admin: 04/17/18 02:16 Dose: 999 mls/hr Magnesium Sulfate 2 gm/ Premix 50 mls @ 50 mls/hr IV ONETIME ONE Stop: 04/17/18 03:12 Last Admin: 04/17/18 02:23 Dose: 50 mls/hr Piperacillin Sod/Tazobactam (Sod 4.5 gm/ Sodium Chloride) 100 mls @ 100 mls/hr IV ONETIME ONE Stop: 04/17/18 03:29 Last Admin: 04/17/18 03:19 Dose: 100 mls/hr Iopamidol (Isovue Multipack-370 (76%)) 50 ml IVPUSH ONETIME STA Stop: 04/16/18 22:02 Last Admin: 04/16/18 22:02 Dose: 50 ml Lorazepam (Ativan) Confirm Administered Dose 2 mg .ROUTE .STK-MED ONE Stop: 04/17/18 01:12 Last Admin: 04/17/18 01:12 Dose: 2 mg Lorazepam (Ativan) Confirm Administered Dose 2 mg .ROUTE .STK-MED ONE Stop: 04/17/18 01:19 Last Admin: 04/17/18 01:19 Dose: 2 mg Methylprednisolone Sodium Succinate (Solu-Medrol) 125 mg IVPUSH ONETIME ONE Stop: 04/16/18 01:31 Last Admin: 04/16/18 01:29 Dose: 125 mg Methylprednisolone Sodium Succinate (Solu-Medrol) Confirm Administered Dose 125 mg .ROUTE .STK-MED ONE Stop: 04/16/18 01:26 Last Admin: 04/16/18 01:41 Dose: Not Given Ondansetron HCl (Zofran) 8 mg IVPUSH ONETIME ONE Stop: 04/16/18 01:33 Last Admin: 04/16/18 01:36 Dose: 8 mg Ondansetron HCl (Zofran) Confirm Administered Dose 8 mg .ROUTE .STK-MED ONE Stop: 04/16/18 01:35 Last Admin: 04/16/18 01:41 Dose: Not Given - Exam General: Alert, Oriented HEENT: Pupils Equal, Pupils Reactive Neck: Supple, Trachea Midline, No JVD, No Thyromegaly Lungs: Clear to Auscultation, Normal Respiratory Effort Cardiovascular: Regular Rate, Regular Rhythm, No Murmurs GI/Abdominal Exam: Normal Bowel Sounds, Soft, Non-Tender, No Organomegaly, No Distention, No Mass Back Exam: Normal Inspection Extremities: Normal Inspection Skin: Warm, Dry, Intact Neurological: No New Focal Deficit Psy/Mental Status: Alert - Problem List & Annotations (1) Hypotension SNOMED Code(s): 57241535 Code(s): I95.9 - HYPOTENSION, UNSPECIFIED Status: Acute Current Visit: Yes (2) Hypotension SNOMED Code(s): 06114336 Code(s): I95.9 - HYPOTENSION, UNSPECIFIED Status: Acute Current Visit: Yes (3) Hypoxia SNOMED Code(s): 214415272 Code(s): R09.02 - HYPOXEMIA Status: Acute Current Visit: Yes (4) Pneumonia SNOMED Code(s): 375619040 Code(s): J18.9 - PNEUMONIA, UNSPECIFIED ORGANISM Status: Acute Current Visit: Yes (5) History of seizure SNOMED Code(s): 494267053 Code(s): Z87.898 - PERSONAL HISTORY OF OTHER SPECIFIED CONDITIONS Status: Acute Current Visit: Yes (6) Loss of consciousness SNOMED Code(s): 968130183, 618011066 Code(s): R40.20 - UNSPECIFIED COMA Status: Acute Current Visit: Yes (7) Grand mal seizure SNOMED Code(s): 52008522 Code(s): G40.409 - OTH GENERALIZED EPILEPSY, NOT INTRACTABLE, W/O STAT EPI Status: Acute Current Visit: Yes - Problem List Review Problem List Initiated/Reviewed/Updated: Yes - My Orders Last 24 Hours: My Active Orders 04/16/18 18:00 amLODIPine [Norvasc] 5 mg PO 1800 04/16/18 20:58 Chest PE [Ang Chest] [CT] Urgent 04/17/18 Echo Comp wo Cont [US] Routine 04/17/18 01:24 LORazepam [Ativan] See Dose Instructions IVPUSH Q1H PRN 04/17/18 02:15 Lactated Ringers [Ringers, Lactated] 1,000 ml IV ASDIRECTED 04/17/18 09:00 Enoxaparin [Lovenox] 40 mg SUBCUT Q24H Multivitamins w-Iron/Ca/FA/Min [Thera M Plus] 1 tab PO DAILY Piperacillin/Tazobactam [Piperacil-Tazobact] 4.5 gm Sodium Chloride 0.9% [ Normal Saline] 100 ml IV Q6H 04/17/ 09:45 levETIRAcetam [Keppra] 750 mg PO BID - Plan Plan:: CAP and possible aspiration - will continue patient with Levaquin IV 750 mg po daily ,Zosyn 4.5 grams iv q 6 h [place] seizure - patient received Keppra 1000 mg last night , we'll continue with 750 Mg by Mouth twice a day. For breakthrough seizures patient to be given Ativan 2 mg IV every 3-5 minutes, for 2 doses if ongoing seizures. DVT prophylaxis-Lanoxin 40 mg subq. Hypoxemia - resolved in am
--- NOTE | 2018-04-17 15:07 | CT ---
EXAM DATE: 04/16/18 PATIENT'S AGE: 37 Patient: DINO WANG Facility: [place], [place] Site . Site : 1980 Study: CT Chest Angio [id number]/16/2018 10:00:56 PM Ordering Physician: Naheed Peter Final Report: INDICATION: Hypoxia, elevated D-dimer, syncope TECHNIQUE: CT chest with i.v. contrast using pulmonary angiographic technique. Coronal and sagittal reformats were obtained. CONTRAST: 50 mL Isovue 370 COMPARISON: None FINDINGS: Moderate degradation of image quality noted due to patient motion artifacts. Cardiovascular: No CT evidence of central pulmonary embolism seen. The 3rd and higher order pulmonary vessels cannot be evaluated due to patient motion and suboptimal contrast bolus. The heart has an unremarkable appearance and size. No sign of aneurysm or dissection in the thoracic aorta. Mediastinum: No mass or adenopathy seen. Lung: Patchy ground-glass opacities are present in the right lower lobe and posterior aspects of both upper lobes. Pleura and pericardium: No sign of pleural effusion seen. No significant pericardial effusion is present. Chest wall and axilla: Ill-defined soft tissue is seen in the retroareolar complexes of the chest bilaterally and most likely due to gynecomastia. Bone: Unremarkable for age. Upper abdomen: Unremarkable. IMPRESSIONS: 1. No CT evidence of central pulmonary embolism seen. The 3rd and higher order pulmonary vessels cannot be evaluated due to patient motion and suboptimal contrast bolus. 2. Patchy ground-glass opacities are present in the right lower lobe and posterior aspects of both upper lobes. This may be due to atelectasis or atypical pneumonia. Dictated by Viraj Haas MD @ 04/16/2018 10:29:01 PM Please note that all CT scans at this facility use dose modulation, iterative reconstruction, and/or weight-based dosing when appropriate to reduce radiation dose to as low as reasonably achievable. Dictated by: Viraj Haas MD @ 04/16/2018 22:29:07 (Electronic Signature) Report Signed by Proxy. [facility] CENTERFacundo
[2018-04-17] MEDS: amLODIPine 5 MG Tab PO SCH (19:42)
--- NOTE | 2018-04-17 20:32 | ECHO ---
The echocardiogram report can be seen in this patient's EMR (Electronic Medical Record) in the Reports section. The echocardiogram report has also been scanned into PACS and can be seen there as well. TRACI
[2018-04-18] MEDS: Piperacillin/Tazobactam 4.5 GM in Sodium Chloride 0.9% 100 ML IV SCH ×2 (03:23→09:33)
[2018-04-18] MEDS: Levofloxacin/Dextrose 5%-Water 750 MG in Premix Bag 1 BAG IV SCH (07:57)
[2018-04-18] MEDS: Enoxaparin 40 MG/0.4 ML Syringe SUBCUT SCH (08:02)
[2018-04-18] MEDS: levETIRAcetam 500 MG Tab PO SCH (08:02)
[2018-04-18] MEDS: Multivitamins with Iron/Calcium/Folic Acid/Minerals Tab PO SCH (08:03)
--- NOTE | 2018-04-18 10:44 | PCM.DCSUM1 ---
Discharge Summary - Hospital Course Diagnosis: Stroke: No - Discharge Data Discharge Disposition: Home, Self-Care 01 Condition: Fair - Discharge Diagnosis/Problem(s) (1) Hypotension SNOMED Code(s): 20055376 ICD Code: I95.9 - HYPOTENSION, UNSPECIFIED Status: Acute Current Visit: Yes (2) Hypotension SNOMED Code(s): 49604774 ICD Code: I95.9 - HYPOTENSION, UNSPECIFIED Status: Acute Current Visit: Yes (3) Hypoxia SNOMED Code(s): 892191536 ICD Code: R09.02 - HYPOXEMIA Status: Acute Current Visit: Yes (4) Pneumonia SNOMED Code(s): 806024192 ICD Code: J18.9 - PNEUMONIA, UNSPECIFIED ORGANISM Status: Acute Current Visit: Yes Qualifiers: Laterality: bilateral (5) History of seizure SNOMED Code(s): 115560861 ICD Code: Z87.898 - PERSONAL HISTORY OF OTHER SPECIFIED CONDITIONS Status: Acute Current Visit: Yes (6) Loss of consciousness SNOMED Code(s): 896702007, 269825484 ICD Code: R40.20 - UNSPECIFIED COMA Status: Acute Current Visit: Yes (7) Grand mal seizure SNOMED Code(s): 99965452 ICD Code: G40.409 - OTH GENERALIZED EPILEPSY, NOT INTRACTABLE, W/O STAT EPI Status: Acute Current Visit: Yes - Patient Instructions Diet: Usual Diet as Tolerated Activity: As Tolerated Driving: Do Not Drive Showering/Bathing: May Shower - Discharge Plan Prescriptions/Med Rec: levETIRAcetam [Keppra] 1,000 mg PO BID 60 Days #120 tablet levETIRAcetam [Keppra] 750 mg PO BID 12 Days #36 tablet Levofloxacin 750 mg PO DAILY #10 tablet Home Medications: Home Meds Multivitamin [Multivitamins] 1 each PO DAILY 04/16/18 [History] Levofloxacin 750 mg PO DAILY #10 tablet 04/18/18 [Rx] levETIRAcetam [Keppra] 1,000 mg PO BID 60 Days #120 tablet 04/18/18 [Rx] levETIRAcetam [Keppra] 750 mg PO BID 12 Days #36 tablet 04/18/18 [Rx] Patient Handouts: Levetiracetam tablets, Levofloxacin tablets, Seizure, Adult, [id number], Community-Acquired Pneumonia, Adult, [id number] - Patient Data Vitals - Most Recent: Last Vital Signs Temp 97.9 F 04/18/18 08:00 Pulse 78 04/18/18 03:30 Resp 20 04/18/18 08:00 BP 148/83 H 04/18/18 08:00 Pulse Ox 92 L 04/18/18 08:00 Weight - Most Recent: 292 lb 6.4 oz I&O - Last 24 hours: Intake & Output 04/17/18 04/18/18 04/18/18 22:59 06:59 14:59 Intake Total 800 790 270 Output Total 1275 1350 Balance -475 -560 270 JAYDE Results - Last 24 hrs: Microbiology 04/16/18 00:45 Aerobic Blood Culture - Preliminary Blood - Venous NO GROWTH AFTER 2 DAYS Anaerobic Blood Culture - Final 04/16/18 00:45 Aerobic Blood Culture - Preliminary Blood - Venous - Iv Start NO GROWTH AFTER 2 DAYS Anaerobic Blood Culture - Preliminary NO GROWTH AFTER 2 DAYS Med Orders - Current: Current Medications Amlodipine Besylate (Norvasc) 5 mg PO 1800 [facility] Last Admin: 04/17/18 19:42 Dose: Not Given Enoxaparin Sodium (Lovenox) 40 mg SUBCUT Q24H [facility] Last Admin: 04/18/18 08:02 Dose: Not Given Levofloxacin/Dextrose 750 mg/ (Premix) 150 mls @ 100 mls/hr IV Q24H [facility] Last Admin: 04/18/18 07:57 Dose: 100 mls/hr Piperacillin Sod/Tazobactam (Sod 4.5 gm/ Sodium Chloride) 100 mls @ 100 mls/hr IV Q6H [facility] Last Admin: 04/18/18 09:33 Dose: 100 mls/hr Levetiracetam (Keppra) 750 mg PO BID [facility] Last Admin: 04/18/18 08:02 Dose: Not Given Lorazepam (Ativan) 2 mg IVPUSH ASDIRECTED PRN PRN Reason: Seizures Multivitamins/Minerals (Thera M Plus) 1 tab PO DAILY [facility] Last Admin: 04/18/18 08:03 Dose: Not Given Discontinued Medications Amlodipine Besylate (Norvasc) 5 mg PO DAILY [facility] Sodium Chloride (Normal Saline) 1,000 mls @ 999 mls/hr IV STAT ONE Stop: 04/16/18 01:40 Last Admin: 04/16/18 00:45 Dose: 999 mls/hr Sodium Chloride (Normal Saline) 1,000 mls @ 999 mls/hr IV .Bolus ONE Stop: 04/16/18 02:39 Last Admin: 04/16/18 01:40 Dose: 999 mls/hr Piperacillin Sod/Tazobactam (Sod 3.375 gm/ Sodium Chloride) 50 mls @ 100 mls/ hr IV ONETIME ONE Stop: 04/16/18 02:12 Last Admin: 04/16/18 01:48 Dose: 100 mls/hr Vancomycin HCl 1 gm/ Sodium (Chloride) 250 mls @ 250 mls/hr IV ONETIME ONE Stop: 04/16/18 02:43 Last Admin: 04/16/18 02:33 Dose: 250 mls/hr Sodium Chloride (Sodium Chloride 0.45%) 1,000 mls @ 125 [facility] Admin: 04/16/18 16:01 Dose: 125 mls/hr Piperacillin Sod/Tazobactam (Sod 4.5 gm/ Sodium Chloride) 100 mls @ 100 mls/hr IV Q6H [facility] Last Admin: 04/16/18 22:00 Dose: 100 mls/hr Levetiracetam 1,000 mg/ (Dextrose/Water) 110 mls @ 440 mls/hr IV NOW ONE Stop: 04/17/18 01:34 Last Admin: 04/17/18 01:34 Dose: 440 mls/hr Lactated Ringer's (Ringers, Lactated) 1,000 mls @ 999 [facility]: 04/17/18 03:16 Last Admin: 04/17/18 02:16 Dose: 999 mls/hr Lactated Ringer's (Ringers, Lactated) 1,000 mls @ 150 mls/[facility] Last Admin: 04/17/18 03:23 Dose: 150 mls/hr Magnesium Sulfate 2 gm/ Premix 50 mls @ 50 mls/hr IV ONETIME ONE Stop: 04/17/18 03:12 Last Admin: 04/17/18 02:23 Dose: 50 mls/hr Piperacillin Sod/Tazobactam (Sod 4.5 gm/ Sodium Chloride) 100 mls @ 100 mls/hr IV ONETIME ONE Stop: 04/17/18 03:29 Last Admin: 04/17/18 03:19 Dose: 100 mls/hr Iopamidol (Isovue Multipack-370 (76%)) 50 ml IVPUSH ONETIME STA Stop: 04/16/18 22:02 Last Admin: 04/16/18 22:02 Dose: 50 ml Lorazepam (Ativan) Confirm Administered Dose 2 mg .ROUTE .STK-MED ONE Stop: 04/17/18 01:12 Last Admin: 04/17/18 01:12 Dose: 2 mg Lorazepam (Ativan) Confirm Administered Dose 2 mg .ROUTE .STK-MED ONE Stop: 04/17/18 01:19 Last Admin: 04/17/18 01:19 Dose: 2 mg Lorazepam (Ativan) 0 mg IVPUSH Q1H PRN PRN Reason: Seizures Lorazepam (Ativan) 2 mg IVPUSH ASDIRECTED PRN PRN Reason: Seizures Methylprednisolone Sodium Succinate (Solu-Medrol) 125 mg IVPUSH ONETIME ONE Stop: 04/16/18 01:31 Last Admin: 04/16/18 01:29 Dose: 125 mg Methylprednisolone Sodium Succinate (Solu-Medrol) Confirm Administered Dose 125 mg .ROUTE .STK-MED ONE Stop: 04/16/18 01:26 Last Admin: 04/16/18 01:41 Dose: Not Given Ondansetron HCl (Zofran) 8 mg IVPUSH ONETIME ONE Stop: 04/16/18 01:33 Last Admin: 04/16/18 01:36 Dose: 8 mg Ondansetron HCl (Zofran) Confirm Administered Dose 8 mg .ROUTE .STK-MED ONE Stop: 04/16/18 01:35 Last Admin: 04/16/18 01:41 Dose: Not Given
== END 2018-04-18 12:44 | disposition home or self-care (01) | DRG 179 ==
LOC: MW.ED 00:32 → MW.ICU 02:00
PROVIDERS: ADMIT Internal Medicine; ATTEND Internal Medicine
DX: J69.0 Pneumonitis due to inhalation of food and vomit (principal); I95.9 Hypotension, unspecified; R09.02 Hypoxemia; G40.409 Other generalized epilepsy and epileptic syndromes, not intractable, without status epilepticus
CPT/HCPCS: 36415; 70450; 70450-26; 71045; 71045-26; 71275; 71275-26; 80048; 80053; 80061; 80177; 80305-QW; 81001; 82550; 83605; 83735; 84100; 84443; 84484; 85025; 85027; 85379; 87040; 93005; 93306; 96361; 96365; 96367; 96375; 99284; 99285-25; A9270-GY; G0480; J1953; J1956; J2060; J2405; J2543; J2930; J3370; J3475; J7030; J7040; J7050; J7060; J7120; Q9967

== ENCOUNTER 2019-11-25 07:20 | Emergency (ER) | payer SELFPAY ==
[2019-11-25] MEDS ORDERED: fentaNYL 100 MCG/2 ML SDV ONE (07:29)
[2019-11-25] MEDS ORDERED: fentaNYL 50 MCG/ML SDV IVPUSH ONE (07:39)
--- NOTE | 2019-11-25 08:01 | CR ---
Chest: Frontal view of the chest was obtained. Comparison: No prior chest x-ray. Heart size and mediastinum are within normal limits for the patient's age. Lungs are clear with no acute parenchymal change. No discrete bony abnormality is identified. Impression: 1. Nothing acute is seen on frontal chest x-ray. Diagnostic code #1 Study was dictated in MDT
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
--- NOTE | 2019-11-25 08:23 | CT ---
CT chest Technique: Multiple axial sections were obtained from above the lung apices inferiorly through the lung bases. Intravenous contrast not utilized. Comparison: Prior chest x-ray performed earlier on the same day (7:35 AM). Findings: Focal parenchymal density is noted within the right upper lung which is pleural-based and has a masslike configuration measuring 4.0 cm. Surrounding interstitial change is noted. Atelectasis is seen posteriorly within both lung bases. Several lymph nodes are seen within the mediastinum which are believed to be within normal limits. Aorta shows no aneurysm. Minimal coronary artery calcification is seen. No pericardial thickening is seen. No discrete rib fracture is appreciated. Vertebral body heights are maintained within the thoracic spine. Reconstructed sagittal images of the sternum appear intact. Impression: 1. Masslike density which is pleural-based along the paraspinal region within the right upper lung. This measures 4.0 cm in size. Surrounding interstitial change is seen. This is nonspecific regarding etiology. Unusual hematoma is possible. Benign tumor is more likely. Surrounding interstitial change most likely due to atelectasis. Follow-up chest CT is recommended in 6 months. This would occur in May,. 2. Atelectasis posteriorly within both lung bases. 3. Nothing acute is appreciated on CT study of the chest. Diagnostic code #9 Study was dictated in MDT
--- NOTE | 2019-11-25 08:27 | CT ---
CT abdomen and pelvis Technique: Multiple axial sections were obtained from above the dome of the diaphragm inferiorly through the pubic symphysis. Intravenous and oral contrast not utilized. Comparison: No prior CT abdomen or pelvis exam is available. Findings: Liver contains no focal parenchymal abnormality. Spleen appears within normal limits. Adrenal glands show no nodule. Pancreas shows no discrete abnormality. Small high density area is noted within the gallbladder which is felt compatible with small gall stone. Kidneys show no abnormal calcifications or hydronephrosis. Aorta shows no aneurysm. No retroperitoneal adenopathy or mesenteric abnormalities are seen. No pelvic mass or adenopathy is identified. No free fluid or inflammatory change is seen. Appendix is seen and is felt to be normal in size. Bone window settings were reviewed and which shows disc space narrowing at L5-S1 with vacuum phenomena. Diffuse posterior disc bulging is noted at L4-L5 with calcification within the posterior disc bulge. No acute osseous finding is seen. Impression: 1. Small gallstone. 2. Degenerative change within the lower lumbar spine. 3. Nothing acute is appreciated on noncontrast CT study of the abdomen and pelvis. Diagnostic code #2 Study was dictated in MDT
--- NOTE | 2019-11-25 08:32 | CT ---
Head CT Technique: Multiple axial sections through the brain were obtained. Intravenous contrast was not utilized. Comparison: No prior intracranial imaging. Findings: Ventricles along with basal cisterns and sulci over the convexities are within normal limits for the patient's age. No abnormal parenchymal densities are seen. No evidence of intracranial hemorrhage. No midline shift or mass effect is seen. Bone window settings were reviewed. Mucosal thickening is seen within the sphenoid and inferior right maxillary sinus as well as ethmoid sinuses. Retention cyst is noted within the left maxillary sinus. No acute calvarial abnormality is appreciated. Mastoid sinuses show nothing acute. Impression: 1. Sinus findings which are most likely chronic. 2. No acute intracranial abnormality is identified. Diagnostic code #2 Study was dictated in MDT
--- NOTE | 2019-11-25 08:32 | CT ---
CT cervical spine Technique: Multiple axial sections were obtained from above C1 inferiorly to the top of T4. Reconstructed sagittal and coronal images were reviewed. There is artifact within the mid and lower cervical spine due to patient's body habitus. Findings: Mild mucosal thickening is seen within the sphenoid and ethmoid sinuses. No air-fluid levels are seen within the visualized sinuses. Retention cyst is noted within the inferior left maxillary sinus measuring 1.6 cm. Moderate disc space narrowing is noted at C6-C7 and C6-C7 T1 and anterior spurring. Mild disc space narrowing is noted at C5-C6. No fracture is seen. No bony central or bony neural foraminal stenosis is seen. No abnormal subluxation is seen. Impression: 1. Degenerative change as noted above. 2. Sinus findings most likely chronic. 3. Nothing acute is appreciated on CT study of the cervical spine. Diagnostic code #2 Study was dictated in MDT
[2019-11-25] MEDS ORDERED: Midazolam 1 MG/ML 2 ML SDV ONE ×3 (08:40→09:28)
[2019-11-25 08:47] LABS: BLOOD UREA NITROGEN,BUN 16 mg/dL (7.0-18.0); CHLORIDE,CL 101 mmol/L (98-107); GLUCOSE RANDOM 118 mg/dL (74-106); POTASSIUM,K 4.4 mmol/L (3.5-5.1); SODIUM,NA 137 mmol/L (136-148)
[2019-11-25] MEDS ORDERED: Midazolam 1 MG/ML 2 ML SDV IVPUSH ONE ×3 (08:54→09:27)
[2019-11-25] MEDS ORDERED: levETIRAcetam 1,000 MG in Sodium Chloride 0.9% 100 ML IV ONE (09:00)
[2019-11-25] MEDS ORDERED: LORazepam 2 MG/ML SDV ONE (09:04)
[2019-11-25] MEDS ORDERED: LORazepam 2 MG/ML SDV IVPUSH ONE ×2 (09:07→09:43)
[2019-11-25] MEDS ORDERED: Ketorolac 30 MG/ML SDV IVPUSH ONE (12:15)
== END 2019-11-25 18:00 | disposition home or self-care (01) ==
LOC: MW.ED 07:20
DX: S19.9XXA Unspecified injury of neck, initial encounter (principal); R56.9 Unspecified convulsions; V49.40XA Driver injured in collision with unspecified motor vehicles in traffic accident, initial encounter; Z91.041 Radiographic dye allergy status
CPT/HCPCS: 36415; 70450; 71045; 71250; 72125; 74176; 80053; 85025; 86850; 86900; 86901; 93005; 96365; 96375; 96376; 99285; J1885; J1953; J2060; J2250; J3010; J7050